=== PATIENT | female | born 1960 | race Caucasian/White ===

== ENCOUNTER 2022-09-27 16:35 | Emergency (ER) | payer OTHER ==
[~2022-09-27] VITALS: Ht 170.2 cm; Wt 81.7 kg
[2022-09-27 17:13] LABS: BASOPHILS ABSOLUTE AUTO 0.07 K/mm3 (0.00-0.23); BASOPHILS PERCENT AUTO 1 % (0-2); EOSINOPHILS ABSOLUTE AUTO 0.05 K/mm3 (0.00-0.68); EOSINOPHILS PERCENT AUTO 1 % (0-6); Hematocrit 30.3 % (33.0-51.0); Hemoglobin 9.4 g/dL (11.5-16.0); IMMATURE GRAN ABSOLUTE AUTO 0.02 K/mm3 (0.00-0.10); IMMATURE GRAN PERCENT AUTO 0 % (0-1); LYMPHOCYTES ABSOLUTE AUTO 2.53 K/mm3 (0.84-5.20); LYMPHOCYTES PERCENT AUTO 38 % (21-46); MONOCYTES ABSOLUTE AUTO 0.43 K/mm3 (0.16-1.47); MONOCYTES PERCENT AUTO 6 % (4-13); Mean Corpuscular HGB 25.6 pg (26.0-34.0); Mean Corpuscular Volume 83 fL (80-100); Mean Platelet Volume 9.9 fL (9.1-12.4); NEUTROPHILS PERCENT AUTO 54 % (41-73); Platelet Count 228 K/mm3 (150-400); RDW Coefficient Variation 14.8 % (11.7-14.2); RDW Standard Deviation 44.4 fL (35.1-46.3); Red Blood Cell Count 3.67 M/mm3 (3.80-5.20)
[2022-09-27 17:41] LABS: Albumin, Blood 2.8 g/dL (3.4-5.0); Albumin/Globulin Ratio 0.7 (0.8-1.8); Beta-hydroxybutyrate 5.1 mg/dL (0.2-2.8); Bilirubin, Total 0.3 mg/dL (0.1-1.0); Bun/Creatinine Ratio 16.8 (12.0-20.0); Calcium, Blood 8.9 mg/dL (8.5-10.1); Creatinine, Blood 1.61 mg/dL (0.40-1.00); Globulin, Blood 4.1 g/dL (2.2-4.0); Potassium, Blood 4.1 mmol/L (3.5-5.5); Total Protein, Blood 6.9 g/dL (6.4-8.2)
[2022-09-27] MEDS ORDERED: Amitriptyline H10 MG PO (20:07)
[2022-09-27] MEDS ORDERED: AMLO10 PO (20:07)
[2022-09-27 20:08] LABS: Source, Urine Clean Catch
[2022-09-27] MEDS ORDERED: ELIQUIS5 M2 PO (20:08)
[2022-09-27] MEDS ORDERED: ASCORBIC ACID500 MG PO (20:09)
[2022-09-27] MEDS ORDERED: ATOR80 PO (20:09)
[2022-09-27 20:20] LABS: Bilirubin, Urine Neg (Neg); Blood, Urine 3+ (Neg); Glucose Qualitative, Urine Neg (Neg); Ketones, Urine 1+ (Neg); Leukocyte Esterase, Urine 3+ (Neg); Nitrite, Urine Neg (Neg); Protein, Urine 4+ (Neg); Urobilinogen, Urine NORM (Normal)
[2022-09-27 20:31] LABS: Appearance, Urine Cloudy (Clear); Color, Urine Yellow (P-Yellow); White Blood Cells, Urine 50-100 /hpf (0-5)
[2022-09-27 20:32] LABS: Bacteria Many /hpf; Squamous Epithelial Cells Few /hpf (Few)
[2022-09-27] MEDS ORDERED: Bentyl20 MG PO (22:19)
[2022-09-27] MEDS ORDERED: Hydroxyzine HCl25 MG PO (22:21)
[2022-09-27] MEDS ORDERED: MELA3 PO (22:21)
[2022-09-27] MEDS ORDERED: METF500C PO (22:23)
[2022-09-27] MEDS ORDERED: OMEP20ER PO (22:24)
[2022-09-27] MEDS ORDERED: Percocet 5-3251 EACH PO (22:24)
[2022-09-27] MEDS ORDERED: MIRALAX17 GM PO (22:26)
[2022-09-27] MEDS ORDERED: SERT100 PO (22:26)
[2022-09-27] MEDS ORDERED: LIDO700A20 TOP (22:29)
[2022-09-27] MEDS ORDERED: CEPH500 PO (23:34)
[2022-09-27] MEDS ORDERED: METF500 PO (23:34)
[2022-09-27 23:45] VITALS: BP 140/102
== END 2022-09-28 | disposition home or self-care (01) ==
LOC: ER 16:35
PROVIDERS: Physician Assistant
DX: E11.65 Type 2 diabetes mellitus with hyperglycemia (principal); N39.0 Urinary tract infection, site not specified; D64.9 Anemia, unspecified; Z79.4 Long term (current) use of insulin; Z88.8 Allergy status to other drugs, medicaments and biological substances; Z79.01 Long term (current) use of anticoagulants; Z79.899 Other long term (current) drug therapy; Z59.00 Homelessness unspecified
CPT/HCPCS: 80053; 81001; 82010; 82947; 83880; 85025; 87077; 87086; 87186; 93005; 93010; 96365; 96375; 99285-25; A9270; J0696; J2405; J7030